=== PATIENT | female | born 1985 | race Two or more races ===

== ENCOUNTER 2017-03-09 09:26 | Emergency (ER) | payer SELFPAY ==
[~2017-03-09] VITALS: Ht 172.7 cm; Wt 115.0 kg
[2017-03-09 09:27] VITALS: BP 169/85; PULSE 75; RESP 16; TEMP 98.7; O2SAT 100
[2017-03-09] MEDS ORDERED: SODIUM CHLOR 0.9% 1000 ML INJ 1,000 ML IV ONE (09:48)
--- NOTE | 2017-03-09 09:52 | PD ---
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 Patient is , 1 with twins, who is currently 8 weeks . The patient's last menstrual cycle was January 14, 2017, she is had no care prior to arrival, but does have an appointment for paperwork next Sunday with the [facility]. The abdominal cramping is intermittent, lower, and feels like a normal menstrual cycle. She also notes brownish discharge but denies any dysuria, frequency, urgency, or hematuria. Symptoms are moderate, possibly exacerbated by underlying , and there are no current alleviating factors. PFSH Past Medical History Medical History: Denies Significant Hx Tetanus Vaccination: Unknown ?: Past Surgical History Surgical History: No Previous Surgery Social History Alcohol Use: No Tobacco Use: No Substance Use: No Allergies-Medications (Allergen,Severity, Reaction): Coded Allergies: No Known Allergies (Unverified , 03/09/17) Reported Meds & Prescriptions Reported Meds & Active Scripts Active No Active Prescriptions or Reported Medications Review of Systems Except as stated in HPI: all other systems reviewed are Neg General / Constitutional: No: Fever Cardiovascular: No: Chest Pain or Discomfort Respiratory: No: Shortness of Breath Gastrointestinal: No: Nausea, Vomiting, Abdominal Pain Genitourinary: Positive: Pelvic Pain (cramping), Discharge, Vaginal Bleeding ( questionable bleeding with dark brown discharge), No: Dysuria Physical Exam Narrative GENERAL: Awake, alert, nontoxic-appearing 31-year-old female who appears her stated age and is in no acute respiratory distress. SKIN: Focused skin assessment warm/dry. HEAD: Atraumatic. Normocephalic. EYES: Pupils equal and round. No scleral icterus. No injection or drainage. ENT: No nasal bleeding or discharge. Mucous membranes pink and moist. NECK: Trachea midline. No JVD. CARDIOVASCULAR: Regular rate and rhythm. No murmur appreciated. RESPIRATORY: No accessory muscle use. Clear to auscultation. Breath sounds equal bilaterally. GASTROINTESTINAL: Abdomen soft, obese, no rebound tenderness. Back: No CVA tenderness. Pelvic: The exam was performed in the presence of a female nurse. Thick brownish to read discharge noted in the vaginal canal, wet prep and gonorrhea/ chlamydia were obtained. Cervix was less than 1 cm in diameter. MUSCULOSKELETAL: No obvious deformities. No clubbing. No cyanosis. No edema. NEUROLOGICAL: Awake and alert. No obvious cranial nerve deficits. Motor grossly within normal limits. Normal speech. PSYCHIATRIC: Appropriate mood and affect; insight and judgment normal. Data Data Last Documented VS Vital Signs Date Time Temp Pulse Resp B/P Pulse Ox O2 Delivery O2 Flow Rate FiO2 03/09/17 09:33 16 03/09/17 09:27 98.7 75 169/85 100 Orders Beta Hcg (Quant/Titer) (03/09/17 09:48) Gc And Chlamydia Pcr (03/09/17 09:48) Complete Rh (03/09/17 09:48) Us Pelvis (Ques Pr/Ect)W Trans (03/09/17 ) Wet Prep Profile (03/09/17 09:48) Urinalysis - C+S If Indicated (03/09/17 09:48) Iv Access Insert/Monitor (03/09/17 09:48) Sodium Chlor 0.9% 1000 Ml Inj (Ns 1000 M (03/09/17 09:48) Ed Urine Pregnancytest Poc (03/09/17 09:49) Labs Laboratory Tests Test 03/09/17 03/09/17 09:50 12:05 Urine Color YELLOW Urine Turbidity HAZY Urine pH 7.5 Urine Specific [place] 1.022 Urine Protein TRACE mg/dL Urine Glucose (UA) NEG mg/dL Urine Ketones NEG mg/dL Urine Occult Blood MOD Urine Nitrite NEG Urine Bilirubin NEG Urine Urobilinogen LESS THAN 2.0 MG/DL Urine Leukocyte Esterase TRACE Urine RBC 3 /hpf Urine WBC 5 /hpf Urine Squamous Epithelial 4 /hpf Cells Urine Bacteria RARE /hpf Urine Mucus FEW /lpf Microscopic Urinalysis Comment CULT NOT INDICATED Human Chorionic Gonadotropin, 5261 MIU/ML Quant Blood Type A POSITIVE Rho(D) Type POSITIVE Clue Cells (Wet Prep) NONE SEEN Vaginal Trichomonas (Wet Prep) NONE SEEN Vaginal Yeast (Wet Prep) NONE SEEN MDM Medical Decision Making Medical Screen Exam Complete: Yes Emergency Medical Condition: Yes Medical Record Reviewed: Yes Interpretation(s) Last Impressions Pelvis Ultrasound 03/09/17 0000 Signed Impressions: Service Date/Time: Thursday, March 09, 2017 10:32 - CONCLUSION: Possible early gestation however I cannot confirm. Fluid in the endocervical canal suggesting this may be an in progress. Followup is suggested. Anton Nieves MD FACR Laboratory Tests Test 03/09/17 03/09/17 09:50 12:05 Urine Color YELLOW Urine Turbidity HAZY Urine pH 7.5 Urine Specific [place] 1.022 Urine Protein TRACE mg/dL Urine Glucose (UA) NEG mg/dL Urine Ketones NEG mg/dL Urine Occult Blood MOD Urine Nitrite NEG Urine Bilirubin NEG Urine Urobilinogen LESS THAN 2.0 MG/DL Urine Leukocyte Esterase TRACE Urine RBC 3 /hpf Urine WBC 5 /hpf Urine Squamous Epithelial 4 /hpf Cells Urine Bacteria RARE /hpf Urine Mucus FEW /lpf Microscopic Urinalysis Comment CULT NOT INDICATED Human Chorionic Gonadotropin, 5261 MIU/ML Quant Blood Type A POSITIVE Rho(D) Type POSITIVE Clue Cells (Wet Prep) NONE SEEN Vaginal Trichomonas (Wet Prep) NONE SEEN Vaginal Yeast (Wet Prep) NONE SEEN Differential Diagnosis Differential diagnosis includes threatened AB, incomplete AB, normal , UTI, vaginitis, Trichomonas, bacterial vaginosis, dehydration, ectopic . Narrative Course IV was established, labs are drawn and sent, and the patient was placed on cardiac telemetry monitoring and continuous pulse oximetry monitoring. UA was sent to lab and bedside test was obtained. Quantitative beta hCG was sent to lab. Ultrasound was ordered to evaluate for ectopic . Pelvic examination was performed in the presence of a female nurse. The patient's blood type is a positive, therefore, no RhoGAM indicated. Wet prep was sent to lab. Ultrasound reveals questionable yolk sac in the uterus and a small amount of fluid in the endocervical canal, this could be early gestation versus an in progress. UA is unremarkable. 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 Wet prep is negative. Diagnosis Primary Impression: Threatened Patient Instructions: General Instructions Additional Instructions: Return in 72 hours for repeat beta hCG. Follow-up with your business computers teacher/ prefabricated houses trimmer. Return earlier if symptoms worsen or progress. Med/Other Pt SpecificInfo: No Change to Meds Scripts No Active Prescriptions or Reported Meds Disposition: 01 DISCHARGE HOME Condition: Stable Barrera,Shiraz Z. MD Mar 09, 2017 09:52
[2017-03-09 10:24] LABS: BACTERIA, URINE RARE /hpf; BLOOD, URINE MOD (NEG); COMMENT (UR) CULT NOT INDICATED; CULTURE IF INDICATED CULT NOT INDICATED; GLUCOSE,URINE NEG (NEG); KETONE, URINE NEG (NEG); MUCUS URINE FEW /lpf (OCC); NITRITE,URINE NEG (NEG); PH, URINE 7.5 (5.0-8.5); SQUAMOUS EPITHELIAL CELL URINE 4 /hpf (0-5); URINE COLOR YELLOW (YELLW/STRAW)
[2017-03-09 10:56] LABS: BETA HCG QUANT 5261 MIU/ML (0-5)
--- NOTE | 2017-03-09 11:56 | RADRPT ---
EXAM DATE/TIME: 03/09/2017 10:32 [facility] COMPARISON: No previous studies available for comparison. INDICATIONS : Ectopic. LAB(S): Beta-hC MEDICAL HISTORY : . SURGICAL HISTORY : section. ENCOUNTER: Initial ACUITY: 1 day PAIN SCORE: 2/10 LOCATION: Bilateral pelvis MEASUREMENTS: LEFT OVARY: 3.5 x 2.6 x 2.6 cm UTERUS: 9.3 x 6.3 x 5.5 cm ENDOMETRIAL STRIPE: 8 mm RIGHT OVARY: 2.4 x 3.3 x 1.5 cm FREE FLUID: No free fluid CROWN RUMP LENGTH: Not visualized = WKS DAYS FHR: Not visualized BPM FINDINGS: UTERUS: Questionable yolk sac in the uterus.. There is is small amount of fluid in the endocervical canal. RIGHT OVARY: Ovary contains no mass or significant cystic lesion. LEFT OVARY: The left ovary is prominent but unremarkable. MISCELLANEOUS: No free fluid. CONCLUSION: Possible early gestation however I cannot confirm. Fluid in the endocervical canal suggesting this m ay be an in progress. Followup is suggested. Anton Nieves MD FACR on March 09, 2017 at 11:50 Board Certified Radiologist. This report was verified electronically.
[2017-03-09 14:30] LABS: CHLAMYDIA PCR NOT DETECTED (NOT DETECT); NEISSERIA PCR NOT DETECTED (NOT DETECT)
== END 2017-03-09 12:59 | disposition home or self-care (01) ==
LOC: NEPD 09:26
DX: O20.0 Threatened abortion (principal); R10.2 Pelvic and perineal pain; Z3A.08 8 weeks gestation of pregnancy
CPT/HCPCS: 76700; 76817; 81001; 84702; 84703; 86901; 87210; 87491; 87591; 96360; 99285; J7030

== ENCOUNTER 2017-03-12 09:49 | Emergency (ER) | payer SELFPAY ==
[~2017-03-12] VITALS: Ht 172.7 cm; Wt 120.0 kg
[2017-03-12 09:50] VITALS: BP 139/73; PULSE 83; RESP 16; TEMP 98; O2SAT 99
[2017-03-12 11:06] VITALS: BP 123/75; PULSE 79; RESP 13; TEMP 98.4; O2SAT 98
--- NOTE | 2017-03-12 11:48 | PD ---
HPI Chief Complaint: Related Problem Time Seen by Provider: 11:45 Travel History International Travel<30 days: No Contact w/Intl Traveler<30days: No Traveled to known affect area: No History of Present Illness HPI 44-year-old female presents the emergency department with question threatened versus intrauterine . She was seen 4 days ago with spotting and cramping. At that time an ultrasound was done without identifying obvious intrauterine . HCG was performed at that time with the results of 5261. Patient was discharged home which she states she's had intermittent spotting and mild cramping on Sunday but none yesterday. She continues to have intermittent vaginal spotting. She is here for repeat serum hCG. Patient denies significant pain other than some mild intermittent suprapubic cramping. She has no Urinary symptoms, or other problems. She has no known drug allergies. PFSH Past Medical History ?: Past Surgical History Section: Yes Social History Alcohol Use: No Tobacco Use: No Substance Use: No Allergies-Medications (Allergen,Severity, Reaction): Coded Allergies: No Known Allergies (Unverified , 03/12/17) Reported Meds & Prescriptions Reported Meds & Active Scripts Active No Active Prescriptions or Reported Medications Review of Systems Except as stated in HPI: all other systems reviewed are Neg General / Constitutional: No: Fever Eyes: No: Visual changes HENT: No: Headaches Cardiovascular: No: Chest Pain or Discomfort Respiratory: No: Shortness of Breath Gastrointestinal: No: Abdominal Pain Genitourinary: Positive: Pelvic Pain (history of present illness. The history present illness.), Vaginal Bleeding, No: Dysuria Musculoskeletal: No: Pain Skin: No Rash Neurologic: No: Weakness Psychiatric: No: Depression Endocrine: No: Polydipsia Hematologic/Lymphatic: No: Easy Bruising Physical Exam Narrative GENERAL: Patient appears no acute distress. SKIN: Warm and dry. HEAD: Atraumatic. Normocephalic. EYES: Pupils equal and round. No scleral icterus. No injection or drainage. ENT: No nasal bleeding or discharge. Mucous membranes pink and moist. Pharynx is clear. NECK: Trachea midline. Neck is supple. CARDIOVASCULAR: Regular rate and rhythm. RESPIRATORY: No accessory muscle use. Clear to auscultation. Breath sounds equal bilaterally. GASTROINTESTINAL: Abdomen soft, non-tender, nondistended. Hepatic and splenic margins not palpable. No CVA tenderness. MUSCULOSKELETAL: Extremities without clubbing, cyanosis, or edema. No obvious deformities. NEUROLOGICAL: Awake and alert. No obvious cranial nerve deficits. Motor grossly within normal limits. Five out of 5 muscle strength in the arms and legs. Normal speech. PSYCHIATRIC: Appropriate mood and affect; insight and judgment normal. Data Data Last Documented VS Vital Signs Date Time Temp Pulse Resp B/P Pulse Ox O2 Delivery O2 Flow Rate FiO2 03/12/17 11:06 98.4 79 13 123/75 98 Room Air Orders Beta Hcg (Quant/Titer) (03/12/17 11:44) Labs Laboratory Tests Test 03/12/17 11:18 Human Chorionic Gonadotropin, 6303 MIU/ML Quant MDM Medical Decision Making Medical Screen Exam Complete: Yes Emergency Medical Condition: Yes Differential Diagnosis Threatened versus intrauterine . Spotting with early . Abdominal cramping. Narrative Course Patient is medically stable at time of exam. Repeat serum hCG is performed. Repeat hCG is 6303. CAll was placed to the sharepoint designer developer hospitalist, and the patient was discussed with Dr. Rivera. She recommended the patient follow up closely with the VASC TECH on-call, with repeat serum hCG in the next several days. Call was placed to Dr. Mares to ensure patient follow-up. Patient is felt stable for discharge. Patient should follow-up with [facility] as planned or return to the emergency Department with any worsening symptoms as discussed. Diagnosis Primary Impression: Threatened miscarriage in early Referrals: [facility] Patient Instructions: General Instructions, Threatened Miscarriage (ED) Additional Instructions: Repeat hCG is 6303. CAll was placed to the sharepoint designer developer hospitalist, and the patient was discussed with Dr. Rivera. She recommended the patient follow up closely with the VASC TECH on-call, with repeat serum hCG in the next several days. Call was placed to Dr. Mares to ensure patient follow-up. Patient is felt stable for discharge. Patient should follow-up with [facility] as planned or return to the emergency Department with any worsening symptoms as discussed. Med/Other Pt SpecificInfo: No Meds Exist/No RX given Scripts No Active Prescriptions or Reported Meds Disposition: 01 DISCHARGE HOME Condition: Stable Maicol Bettencourt Mar 12, 2017 11:48
[2017-03-12 12:34] LABS: BETA HCG QUANT 6303 MIU/ML (0-5)
== END 2017-03-12 13:16 | disposition home or self-care (01) ==
LOC: NEPD 09:49
DX: O20.0 Threatened abortion (principal); Z3A.01 Less than 8 weeks gestation of pregnancy
CPT/HCPCS: 84702; 99282